=== PATIENT | female | born 1970 | race Caucasian/White ===

== ENCOUNTER → 2018-01-15 09:01 | Outpatient (CLI) | payer MEDICAID, SELFPAY ==
[2018-01-15 09:22] LABS: Basophils % 0.4 % (0.1-2.0); Eosinophils # 0.2 K/mm3 (0.0-0.4); Eosinophils % 3.1 % (0.1-12.0); Hematocrit 36.5 % (37.0-47.0); Lymphocytes % 26.8 K/mm3 (10-50); Mean Corpuscular HGB Conc 32.7 g/dL (31.8-35.4); Mean Corpuscular Hemoglobin 30.7 pg (27.0-31.2); Mean Corpuscular Volume 93.8 fl (81-99); Mean Platelet Volume 6.9 fl (7.4-10.4); Monocytes # 0.4 K/mm3 (0.1-1.0); Monocytes % 5.7 % (1.7-9.3); Neutrophils # 4.8 K/mm3 (1.8-7.8); Neutrophils % 64.1 % (37.0-80.0); Platelet Count 485 K/mm3 (142-424); Red Blood Count 3.89 M/mm3 (4.20-5.40); Red Cell Distribution Width 13.4 % (11.5-17.5); White Blood Count 7.5 K/mm3 (4.8-10.8)
[2018-01-15 16:48] LABS: Alanine Aminotransferase 23 U/L (12-78); Albumin Level 3.6 gm/dL (3.4-5.0); Alkaline Phosphatase 117 U/L (46-116); Anion Gap 9.4 mEq/L (5-15); Aspartate Amino Transferase 14 U/L (15-37); Bilirubin,Total 0.1 mg/dL (0.2-1.0); Blood Urea Nitrogen 11 mg/dL (7-18); Calcium 9.2 mg/dL (8.5-10.1); Carbon Dioxide 28 mmol/L (21.0-32.0); Chloride 103 mmol/L (98-107); Chol/HDL Ratio 4.8 (1-3.5); Cholesterol 158 mg/dL (140-200); Creatinine,Serum 1.15 mg/dL (0.55-1.02); Estimated Glomerular Filt Rate 50 ml/min (>60); GFR (African American) 61 ML/MIN (>60); Globulin 3.5 gm/dl (1.3-3.2); Glucose 114 mg/dL (74-106); HDL Cholesterol 33 mg/dL (29-89); LDL Cholesterol 109 mg/dL (0-130); Potassium 5.4 mmoL/L (3.5-5.1); Sodium 135 mmol/L (136-145); Total Protein,Serum 7.1 gm/dL (6.4-8.2); Triglycerides 78 mg/dL (30-200); VLDL Cholesterol 16 mg/dL (0-40)
== END ==
PROVIDERS: Visit Provider Nurse Practitioner Family
DX: E78.5 Hyperlipidemia, unspecified (principal); R73.9 Hyperglycemia, unspecified; R63.5 Abnormal weight gain; J44.9 Chronic obstructive pulmonary disease, unspecified
CPT/HCPCS: 36415; 80053; 80061; 83036; 84443; 85025

== ENCOUNTER → 2018-08-20 10:06 | Outpatient (CLI) | payer MEDICAID, SELFPAY ==
[2018-08-20 10:19] LABS: Basophils % 0.3 % (0.1-2.0); Eosinophils # 0.2 K/mm3 (0.0-0.4); Hematocrit 37.2 % (37.0-47.0); Lymphocytes # 1.8 K/mm3 (0.7-4.5); Lymphocytes % 17.2 % (10-50); Mean Corpuscular HGB Conc 32.2 g/dL (31.8-35.4); Mean Corpuscular Hemoglobin 29.8 pg (27.0-31.2); Mean Corpuscular Volume 92.7 fl (81-99); Mean Platelet Volume 6.4 fl (7.4-10.4); Monocytes # 0.4 K/mm3 (0.1-1.0); Monocytes % 3.8 % (1.7-9.3); Neutrophils # 7.9 K/mm3 (1.8-7.8); Neutrophils % 76.8 % (37.0-80.0); Platelet Count 461 K/mm3 (142-424); Red Blood Count 4.02 M/mm3 (4.20-5.40); Red Cell Distribution Width 14.6 % (11.5-17.5); White Blood Count 10.3 K/mm3 (4.8-10.8)
[2018-08-20 10:32] LABS: Hemoglobin A1C 6.4 % (0.0-7.0)
[2018-08-20 11:16] LABS: Alanine Aminotransferase 25 U/L (12-78); Albumin Level 3.6 gm/dL (3.4-5.0); Alkaline Phosphatase 145 U/L (46-116); Anion Gap 13.5 mEq/L (5-15); Aspartate Amino Transferase 9 U/L (15-37); Bilirubin,Total 0.3 mg/dL (0.2-1.0); Blood Urea Nitrogen 14 mg/dL (7-18); Calcium 8.8 mg/dL (8.5-10.1); Carbon Dioxide 28 mmol/L (21.0-32.0); Chloride 100 mmol/L (98-107); Cholesterol 160 mg/dL (140-200); Creatinine,Serum 1.13 mg/dL (0.55-1.02); Estimated Glomerular Filt Rate 51 ml/min (>60); GFR (African American) 62 ML/MIN (>60); Globulin 3.6 gm/dl (1.3-3.2); Glucose 105 mg/dL (74-106); HDL Cholesterol 40 mg/dL (29-89); LDL Cholesterol 100 mg/dL (0-130); Potassium 4.5 mmoL/L (3.5-5.1); Sodium 137 mmol/L (136-145); Total Protein,Serum 7.2 gm/dL (6.4-8.2); Triglycerides 98 mg/dL (30-200); VLDL Cholesterol 20 mg/dL (0-40)
== END ==
PROVIDERS: Visit Provider Nurse Practitioner Family
DX: E78.5 Hyperlipidemia, unspecified (principal); R73.9 Hyperglycemia, unspecified; I10 Essential (primary) hypertension; F31.70 Bipolar disorder, currently in remission, most recent episode unspecified
CPT/HCPCS: 36415; 80053; 80061; 83036; 85025

== ENCOUNTER → 2018-08-29 16:16 | Outpatient (CLI) | payer MEDICAID, SELFPAY ==
--- NOTE | 2018-08-29 16:20 | MM_ITS ---
MM Dig screening mamm BI w/CAD CAD Screening COMPARISON: Digital mammograms with CAD 09/17/2014 INDICATION: There is a history of breast cancer in a patient maternal aunt diagnosed after menopause. There has been a previous biopsy right breast for benign disease. TECHNIQUE: Standard CC and MLO images were obtained. R2 CAD reviewed. FINDINGS: The breasts are composed primarily of fat with minimal scattered fibroglandular densities in each breast. There is a stable benign-appearing nodular density near the axillary tail left breast likely an intramammary node. Several small fatty replaced nodes in both axilla. There is no suspicious lesion and there are no suspicious microcalcifications. IMPRESSION: Fatty type breast parenchyma with no suspicious lesion seen BI-RADS Category: 2 Benign Finding(s) RECOMMENDED FOLLOW-UP: 1YR - 1 YEAR FOLLOW-UP (A letter has been sent to the patient regarding results of the study.)
== END ==
PROVIDERS: PCP Nurse Practitioner Family; Visit Provider Nurse Practitioner Family
DX: Z12.31 Encounter for screening mammogram for malignant neoplasm of breast (principal)
CPT/HCPCS: 77067

== ENCOUNTER → 2018-09-20 12:55 | Outpatient (CLI) | payer MEDICAID, SELFPAY | PROVIDERS: PCP Internal Medicine Adolescent Medicine; Visit Provider Nurse Practitioner Family | DX: Z71.3 Dietary counseling and surveillance (principal); R73.9 Hyperglycemia, unspecified | CPT/HCPCS: 97802 ==

== ENCOUNTER → 2019-11-21 13:02 | Outpatient (CLI) | payer OTHER, SELFPAY ==
--- NOTE | 2019-11-21 13:17 | XR_ITS ---
PROCEDURE: XR KNEE LT 3V CLINICAL INDICATION: LT LATERAL KNEE PAIN COMPARISON: No exams were available for comparison FINDINGS: No fracture or dislocation. No lytic or blastic change. There is normal mineralization. There are mild osteoarthritic changes involving all 3 compartments Other findings:Small loose body versus osteophyte along the anterior tibial spine IMPRESSION: Osteoarthritis with small loose body versus osteophyte along the anterior tibial spine otherwise negative Dictated by: Artur Becerra MD 11/21/2019 15:27 Electronically signed by Artur Becerra MD in [place] 11/21/2019 15:27
[2019-11-21 13:18] LABS: Basophils % 0.3 % (0.1-2.0); Eosinophils # 0.2 K/mm3 (0.0-0.4); Eosinophils % 2.5 % (0.1-12.0); Hemoglobin 11.3 g/dL (12.2-16.2); Lymphocytes # 2.4 K/mm3 (0.7-4.5); Lymphocytes % 31.2 % (10-50); Mean Corpuscular HGB Conc 33.1 g/dL (31.8-35.4); Mean Corpuscular Hemoglobin 31.1 pg (27.0-31.2); Mean Corpuscular Volume 94.1 fl (81-99); Mean Platelet Volume 7.5 fl (7.4-10.4); Monocytes # 0.5 K/mm3 (0.1-1.0); Monocytes % 6.9 % (1.7-9.3); Neutrophils # 4.6 K/mm3 (1.8-7.8); Neutrophils % 59.1 % (37.0-80.0); Platelet Count 416 K/mm3 (142-424); Red Blood Count 3.62 M/mm3 (4.20-5.40); Red Cell Distribution Width 13.5 % (11.5-17.5); White Blood Count 7.7 K/mm3 (4.8-10.8)
[2019-11-21 14:27] LABS: Alanine Aminotransferase 19 U/L (12-78); Albumin Level 4.1 g/dl (3.5-5.0); Albumin/Globulin Ratio 1.6 (1.1-1.8); Alkaline Phosphatase 77 U/L (38-126); Anion Gap 11.4 mEq/L (5-15); Aspartate Amino Transferase 19 U/L (14-36); Blood Urea Nitrogen 13 mg/dl (7-17); Calcium 9.4 mg/dl (8.4-10.2); Carbon Dioxide 29 mmol/L (22.0-30.0); Chloride 100 mmol/L (98-107); Estimated Glomerular Filt Rate 53 ml/min (>60); GFR (African American) 64 ML/MIN (>60); Globulin 2.6 g/dL (1.3-3.2); Glucose 85 mg/dl (74-100); Potassium 4.4 mmoL/L (3.5-5.1); Sodium 136 mmol/L (136-145); Total Protein,Serum 6.7 g/dl (6.3-8.2)
[2019-11-21 14:28] LABS: Bilirubin,Total 0.1 mg/dl (0.2-1.3)
[2019-11-21 14:59] LABS: Thyroid Stimulating Hormone 2.51 uIU/mL (0.465-4.68)
[2019-11-21 18:07] LABS: Hemoglobin A1C 5.3 % (4.0-6.0)
[2019-11-22 12:28] LABS: Creatinine, Urine 90.6 mg/dL (Not Estab.); Microalbumin, Urine 6.6 ug/mL (Not Estab.)
== END ==
LOC: LAB 13:02 → RAD 13:15
PROVIDERS: PCP Nurse Practitioner Family; Visit Provider Nurse Practitioner Family
DX: R73.03 Prediabetes (principal); I10 Essential (primary) hypertension; N18.3 Chronic kidney disease, stage 3 (moderate); K21.9 Gastro-esophageal reflux disease without esophagitis; M25.562 Pain in left knee; Z72.0 Tobacco use
CPT/HCPCS: 36415; 73562; 80053; 82043; 82570; 83036; 84443; 85025

== ENCOUNTER → 2019-12-06 08:30 | Outpatient (CLI) | payer OTHER, SELFPAY ==
--- NOTE | 2019-12-06 08:34 | XR_ITS ---
PROCEDURE: XR KNEE LT 4V CLINICAL INDICATION: left knee pain COMPARISON: XR KNEE LT 3V from 11/21/2019 FINDINGS: No fracture or dislocation. No lytic or blastic change. There is normal mineralization. There are [id number] osteoarthritic changes involving all 3 compartments. Calcification is present along the anterior tibial spine and may be due to either an osteophyte or loose body. Other findings:None. IMPRESSION: No change mild to moderate osteoarthritic changes with osteophyte versus loose body at the anterior tibial spine Dictated by: Artur Becerra MD 12/06/2019 09:24 Electronically signed by Artur Becerra MD in [place] 12/06/2019 09:24
== END ==
PROVIDERS: PCP Nurse Practitioner Family; Visit Provider Orthopaedic Surgery
DX: M25.562 Pain in left knee (principal)
CPT/HCPCS: 73564

== ENCOUNTER → 2019-12-16 09:37 | Outpatient (CLI) | payer OTHER, SELFPAY ==
--- NOTE | 2019-12-16 09:49 | MM_ITS ---
PROCEDURE: MM DIG SCREENING MAMM BI W/CAD Digital Breast Tomosynthesis Included CLINICAL INDICATION: SCREENING COMPARISON: [facility] DIG MAMM-SCREEN MEGHANN from 09/17/2014 [facility] MM Dig screening mamm BI w/CAD from 08/29/2018 TECHNIQUE: Standard CC and MLO images and 3D Tomosynthesis was obtained. R2 CAD reviewed. FINDINGS: The breasts are of average density. Multiple benign appearing nodules project over the right pectoral muscle and in the prepectoral region bilaterally most consistent with benign lymph nodes. No discrete masses suspicious clustered microcalcifications or other new findings suspicious for malignancy are apparent. IMPRESSION: BI-RAD Category: 2 Benign Finding(s) FOLLOW-UP: 1YR 1 Year Follow-up (A letter has been sent to the patient regarding results of the study.) Dictated by: Bo Stock 12/16/2019 18:37 Electronically signed by Bo Stock in [place] 12/16/2019 18:37
== END ==
PROVIDERS: PCP Nurse Practitioner Family; Visit Provider Nurse Practitioner Family
DX: Z12.31 Encounter for screening mammogram for malignant neoplasm of breast (principal)
CPT/HCPCS: 77063; 77067

== ENCOUNTER → 2021-05-27 09:36 | Outpatient (CLI) | payer OTHER, SELFPAY ==
[2021-05-27 10:05] LABS: Basophils # 0.1 K/mm3 (0-0.2); Basophils % 0.6 % (0.1-2.0); Eosinophils # 0.8 K/mm3 (0.0-0.4); Eosinophils % 9.8 % (0.1-12.0); Hematocrit 34.8 % (37.0-47.0); Hemoglobin 11.1 g/dL (12.2-16.2); Lymphocytes # 1.7 K/mm3 (0.7-4.5); Lymphocytes % 19.9 % (10-50); Mean Corpuscular HGB Conc 31.9 g/dL (31.8-35.4); Mean Corpuscular Hemoglobin 32.3 pg (27.0-31.2); Mean Corpuscular Volume 101.3 fl (81-99); Mean Platelet Volume 7.7 fl (7.4-10.4); Monocytes # 0.5 K/mm3 (0.1-1.0); Monocytes % 6.1 % (1.7-9.3); Neutrophils # 5.4 K/mm3 (1.8-7.8); Neutrophils % 63.6 % (37.0-80.0); Platelet Count 421 K/mm3 (142-424); Red Blood Count 3.44 M/mm3 (4.20-5.40); Red Cell Distribution Width 13.9 % (11.5-17.5); White Blood Count 8.5 K/mm3 (4.8-10.8)
[2021-05-27 10:56] LABS: Chloride 105 mmol/L (98-107); Potassium 4.9 mmoL/L (3.5-5.1); Sodium 140 mmol/L (136-145)
[2021-05-27 10:59] LABS: Alanine Aminotransferase 10 U/L (12-78); Albumin Level 3.6 g/dl (3.5-5.0); Albumin/Globulin Ratio 1.2 (1.1-1.8); Alkaline Phosphatase 70 U/L (38-126); Anion Gap 13.9 mEq/L (5-15); Aspartate Amino Transferase 17 U/L (14-36); Blood Urea Nitrogen 25 mg/dl (7-17); Carbon Dioxide 26 mmol/L (22.0-30.0); Cholesterol 197 mg/dl (140-200); Estimated Glomerular Filt Rate 32 ml/min (>60); GFR (African American) 38 ML/MIN (>60); Globulin 2.9 g/dL (1.3-3.2); Total Protein,Serum 6.5 g/dl (6.3-8.2); Triglycerides 101 mg/dl (30-150); VLDL Cholesterol 20 mg/dL (0-40)
[2021-05-27 11:00] LABS: Calcium 9.3 mg/dl (8.4-10.2); Chol/HDL Ratio 6.8 (1-3.5); Glucose 99 mg/dl (74-100); HDL Cholesterol 29 mg/dl (40-60)
[2021-05-27 11:02] LABS: Bilirubin,Total 0.1 mg/dl (0.2-1.3)
[2021-05-27 11:11] LABS: Direct LDL Cholesterol 132.18 mg/dL (100-129)
[2021-05-27 11:30] LABS: Thyroid Stimulating Hormone 1.94 uIU/mL (0.465-4.68)
[2021-05-27 12:50] LABS: Hemoglobin A1C 5.6 % (4.0-6.0)
== END ==
PROVIDERS: Visit Provider Nurse Practitioner Family
DX: I10 Essential (primary) hypertension (principal); R73.03 Prediabetes; R63.4 Abnormal weight loss
CPT/HCPCS: 36415; 80053; 80061; 83036; 84443; 85025

== ENCOUNTER 2021-06-03 18:45 | Emergency (ER) | payer OTHER, SELFPAY ==
[2021-06-03 18:48] VITALS: BP 149/91; PULSE 87; RESP 18; TEMP 36.8; O2SAT 99; BMI 31.3
--- NOTE | 2021-06-03 19:04 | XR_ITS ---
PROCEDURE INFORMATION: Exam: XR Right Foot Exam date and time: 06/03/21 07:04 PM Age: 50 years old Clinical indication: Pain; Toes; Right; Additional info: Great toe trauma TECHNIQUE: Imaging protocol: XR Right foot. Views: 3 or more views. COMPARISON: No relevant prior studies available. FINDINGS: Bones/joints: Small avulsion fracture of the tuft of the distal phalanx of the great toe. Soft tissues: Normal. IMPRESSION: Small avulsion fracture of the tuft of the distal phalanx of the great toe.
--- NOTE | 2021-06-03 20:00 | HMH.EDEXTP ---
ED Disposition Clinical Impression: Nailbed avulsion Disposition: Home, Self-Care Condition on Discharge: Good Instructions: DI for Nail Avulsion Injury Referrals: Eleonora Gandara APRN [Primary Care Provider] - Tami Martin DPM [Staff Physician] - - Critical Care Critical Care Time: No Attestation: On 06/03/21, the high probability of a clinically significant, sudden or life threatening deterioration of the following system(s) required my full and direct attention, intervention and personal management. The time I documented below is in addition to time spent performing reported procedures but includes the following listed in this critical care notation. Medical Decision Making - Medical Records Medical records reviewed: Yes: I reviewed the patient's medical records. - Guillermo Inquiry Pt receiving controlled substance: No Vital Signs: 06/03/21 18:48 Temperature 98.3 F Temperature Source Oral Pulse Rate [Right Radial] 87 Respiratory Rate 18 Blood Pressure [Right Arm] 149/91 H Blood Pressure Mean [Right Arm] 110 Blood Pressure Source [Right Arm] Automatic Cuff Blood Pressure Position [Right Arm] Sitting 02 Sat by Pulse Oximetry 99 Oxygen Delivery Method Room Air Orders (Tests/Meds): ED MEDICATIONS Discontinued Medications Generic Name Dose Route Start Last Admin Trade Name Freq PRN Reason Stop Dose Admin Acetaminophen 1,000 mg 06/03/21 19:04 06/03/21 19:46 Acetaminophen 500mg Tab PO 06/03/21 19:05 1,000 mg ONCE ONE Administration ORDERS Category Date Time Status XR foot RT min 3V Stat Exams 06/03/21 19:04 Taken - Radiology Data #1 Image(s): Foot/Toes Image Reviewed: Yes I reviewed the patient's radiology results, Yes I reviewed the patient's radiology image Preliminary Findings: Normal/NAD, No Fracture Seen - Reevaluation(s) Time: 20:04 Reevaluation #1: On reevaluation, patient tolerated procedure well. We did apply sterile dressing. She will need to follow-up with podiatry in 48 hours. Given strict return precautions. Verbalized understanding. Medical Decision Narrative: 50-year-old female presenting with trauma to her right great toe. She does have evidence of partial nail removal. She will require full nail removal. X-ray obtained. Tetanus updated Extremity Problem HPI - General Chief complaint: Extremity Injury, Lower Stated complaint: injured right big toe Time Seen by Provider: 06/03/21 19:00 Mode of Arrival: Ambulatory Limitations: No Limitations Description of Symptoms (Recalled from ER Triage Doc. by RN): pt struck right great toe on bottom of door frame displacing her toe nail. - History of Present Illness HPI Narrative: This is a 50-year-old female presented to the emergency department after she hit her toe on the bottom of the door when she was opening it. She hit her toenail pretty hard. She had significant bleeding afterwards. She is complaining of pain in her right great toe. Patient is not up-to-date on tetanus immunization. She denies any other injuries. She not having chest pain or shortness of breath and abdominal pain or vomiting. No headache or change in vision. - Related Data Home Medications Medication Instructions Recorded Confirmed atorvastatin 40 mg tablet 40 mg PO DAILY 12/06/19 06/23/20 cetirizine 10 mg tablet 10 mg PO DAILY 12/06/19 06/23/20 diclofenac sodium 1 % topical gel 2 g TOPICAL QID 12/06/19 06/23/20 fluticasone propionate 50 1 spray INTRANASAL DAILY 12/06/19 06/23/20 mcg/actuation nasal spray,suspension hydrochlorothiazide 12.5 mg capsule 12.5 mg PO DAILY 12/06/19 06/23/20 lisinopril 20 mg tablet 20 mg PO DAILY 12/06/19 06/23/20 metformin 500 mg tablet 500 mg PO DAILY 12/06/19 06/23/20 pantoprazole 40 mg tablet,delayed 40 mg PO DAILY 12/06/19 06/23/20 release Previous Rx's Medication Instructions Recorded celecoxib 100 mg capsule 100 mg PO BID PRN #60 cap 05/06/20 bupropi
[2021-06-03 20:22] VITALS: BP 136/85; PULSE 79; RESP 16; TEMP 36.7; O2SAT 98
== END 2021-06-03 20:27 | disposition home or self-care (01) ==
PROVIDERS: Emergency Provider Emergency Medicine; PCP Nurse Practitioner Family
DX: S91.201A Unspecified open wound of right great toe with damage to nail, initial encounter (principal); Z23 Encounter for immunization; Z79.84 Long term (current) use of oral hypoglycemic drugs; Z79.899 Other long term (current) drug therapy; Z88.1 Allergy status to other antibiotic agents; Z88.6 Allergy status to analgesic agent; J45.909 Unspecified asthma, uncomplicated; E11.9 Type 2 diabetes mellitus without complications; K21.9 Gastro-esophageal reflux disease without esophagitis; E78.5 Hyperlipidemia, unspecified; I10 Essential (primary) hypertension; D64.9 Anemia, unspecified; F41.9 Anxiety disorder, unspecified; M19.90 Unspecified osteoarthritis, unspecified site
CPT/HCPCS: 11730; 73630; 90471; 90715; 99282

== ENCOUNTER → 2021-09-02 11:51 | Outpatient (CLI) | payer OTHER, SELFPAY ==
[2021-09-02 13:17] LABS: Chloride 102 mmol/L (98-107)
[2021-09-02 13:18] LABS: Potassium 4.5 mmoL/L (3.5-5.1); Sodium 136 mmol/L (136-145)
[2021-09-02 13:20] LABS: Blood Urea Nitrogen 24 mg/dl (7-17); Estimated Glomerular Filt Rate 52 ml/min (>60); GFR (African American) 63 ML/MIN (>60)
[2021-09-02 13:21] LABS: Anion Gap 13.5 mEq/L (5-15); Carbon Dioxide 25 mmol/L (22.0-30.0); Glucose 86 mg/dl (74-100)
== END ==
PROVIDERS: Visit Provider Nurse Practitioner Family
DX: I10 Essential (primary) hypertension (principal); R73.03 Prediabetes
CPT/HCPCS: 36415; 80048

== ENCOUNTER 2022-02-22 18:29 | Emergency (ER) | payer OTHER, SELFPAY ==
[2022-02-22 19:30] VITALS: BP 144/80; PULSE 74; RESP 19; TEMP 36.9; O2SAT 98; BMI 34.4
--- NOTE | 2022-02-22 19:52 | HMH.EDUTC ---
[facility] [place] Clinical Impression: Skin abscess Qualifiers: Site of cutaneous abscess: head Qualified Code(s): L02.811 - Cutaneous abscess of head [any part, except face] Disposition: Home, Self-Care Condition on Discharge: Good Instructions: DI for Skin Abscess Additional Instructions: *Continue antibiotic(s) immediately and be sure to take as ordered for the FULL length of time although you may be feeling better or start to see improvement in the next 24-48 hours *Monitor closely. Outlined redness so that you can monitor easier. Follow up immediately for new or worsening symptoms including but not limited to redness, swelling, streaking from site fever or chills. *Warm compress with warm water and epson salt 15 minutes 3-4 times day *Never squeeze or pop these on your own. Seek immediate medical attention next time this occurs *Monitor Temp. Tylenol every 4 hours as needed and ibuprofen every 6 hours as needed (as long as your primary care doctor has told you that it is ok to take both. For fever, aches, pain. ER if no less that 101 despite Tylenol and ibuprofen Follow up with your family doctor/primary care physician in the next 48-72 hours if no improvement A culture was obtained from the area on the back of your Head Culture should be back in the next 48 hours Make sure to follow up to see if you are on the correct antibiotic for the infection this Over the counter Ibuprofen or Tylenol for the pain Prescriptions: Ibuprofen [Ibuprofen 600mg Tablet] 600 mg PO Q8HP PRN #12 tab PRN Reason: Moderate Pain Transmission Status: Pending to [id number] Referrals: Eleonora Gandara APRN [Primary Care Provider] - As needed Time of Disposition: 20:11 Medical Decision Making - Guillermo Inquiry Pt receiving controlled substance: No Guillermo was queried for this patient: No Vital Signs: 02/22/22 19:30 Temperature 98.5 F Temperature Source Oral Pulse Rate [Right Brachial] 74 Respiratory Rate 19 Blood Pressure [Right Arm] 144/80 H Blood Pressure Mean [Right Arm] 101 Blood Pressure Source [Right Arm] Automatic Cuff Blood Pressure Position [Right Arm] Sitting 02 Sat by Pulse Oximetry 98 Oxygen Delivery Method Room Air Orders (Tests/Meds): ORDERS Category Date Time Status Wound Culture and Gram Stain Stat Micro 02/22/22 19:46 Ordered Medical Decision Narrative: Patient denies Kidney issues and states that she can take Ibuprofen medication discussed with pharmacy [facility] [place] - General Stated complaint: Boil at Hair line back of neck Time Seen by Provider: 02/22/22 19:52 Mode of Arrival: Ambulatory Source of Information: Patient Limitations: No Limitations Description of Symptoms (Recalled from Triage Doc. by RN): PATIENT STATES SHE HAS A BOIL THAT SHE WANTS LANCED. SHE WAS STARTED ON BACTRIM YESTERDAY FOR THE BOIL HEENT Symptoms (Recalled from RN notes): No Resp Symptoms (Recalled from RN notes): No Skin Symptoms (Recalled from RN notes): Yes MS Symptoms (Recalled from RN notes): No Functional Status (Recalled from RN notes): WNL - History of Present Illness Provider Complaint: Patient states that she was seen by her PCP yesterday for a boil on the back of her head around her hairline State that she poked it something and started her on bactrim and some topical antibiotic States that she has take 3 doses of her antibiotic and her poked it again with needle earlier but nothing came out so she came in to see if she could get something else - Related Data Home Medications Medication Instructions Recorded Confirmed atorvastatin 40 mg tablet 40 mg PO DAILY 12/06/19 12/28/21 cetirizine 10 mg tablet 10 mg PO DAILY 12/06/19 12/28/21 diclofenac sodium 1 % topical gel 2 g TOPICAL QID 12/06/19 12/28/21 fluticasone propionate 50 1 spray INTRANASAL DAILY 12/06/19 12/28/21 mcg/actuation nasal spray,suspension hydrochlorothiazide 12.5 mg capsule 12.5 mg PO DAILY 12/06/19 12/28/21 lisinopril
[2022-02-22 20:10] VITALS: BP 144/80; PULSE 74; RESP 19; TEMP 36.9; O2SAT 98
== END 2022-02-22 20:15 | disposition home or self-care (01) ==
PROVIDERS: Emergency Provider Nurse Practitioner; PCP Nurse Practitioner Family
DX: L02.811 Cutaneous abscess of head [any part, except face] (principal); A49.01 Methicillin susceptible Staphylococcus aureus infection, unspecified site; Z16.39 Resistance to other specified antimicrobial drug; Z16.11 Resistance to penicillins
CPT/HCPCS: 87070; 87077; 87186; 87205; 99212; G0463

== ENCOUNTER 2022-02-25 12:22 | Observation (INO) | payer OTHER, SELFPAY ==
[2022-02-25] VITALS (19 sets, daily range): BP systolic 121–154; BP diastolic 64–99; PULSE 64–84; RESP 15–17; TEMP 36.4–36.7; O2SAT 95–100; BMI 75.8
--- NOTE | 2022-02-25 12:55 | PC.NURSE ---
Pt arrived to the floor at this time
--- NOTE | 2022-02-25 13:12 | HMH.GSCON ---
*Admission Date: 02/25/22 *Reason for consult:: Posterior neck abscess/carbuncle *History of present illness: This is a 51-year-old female seen in consultation from Dr. Francis for evaluation regarding a posterior neck abscess/carbuncle that has failed outpatient antibiotic therapy. No fevers. Review of Systems - Constitutional Denies chills - ENT Denies difficulty swallowing - *Cardiovascular Denies chest pain - *Respiratory Denies cough [facility] History Medical History: Reports:: Anxiety, Asthma, Diabetes Mellitus Type 2, Gastroesophageal Reflux Disease(GERD), Hyperlipidemia, Hypertension *Have you ever received a pneumonia vaccine?: Yes *Have you received a flu vaccine this season?: No Other Medical History: Reports: Anemia, Arthritis, Sinus Problems Laterality Cases: Right: Other Other Surgeries: Yes: Sinus Surgery, Tubal Ligation - *Social History Smoking Status: Current every day smoker Tobacco Type: cigarettes # Packs/Day (cigarettes): 1 Alcohol Intake: never Alcohol Intake Frequency:: other Substance Use Type: crack/cocaine, painkillers *Occupational Status:: other *Travel in the last 8 weeks: None - Psychiatric History Pschychiatric History:: Reports:: Anxiety Family Hx:: Cancer, Hypertension, Hyperlipidemia, Heart Attack Meds Home Medications Medication Instructions Recorded Confirmed Type atorvastatin 40 mg tablet 40 mg PO DAILY 12/06/19 12/28/21 History cetirizine 10 mg tablet 10 mg PO DAILY 12/06/19 12/28/21 History diclofenac sodium 1 % topical gel 2 g TOPICAL QID 12/06/19 12/28/21 History fluticasone propionate 50 1 spray INTRANASAL DAILY 12/06/19 12/28/21 History mcg/actuation nasal spray,suspension hydrochlorothiazide 12.5 mg capsule 12.5 mg PO DAILY 12/06/19 12/28/21 History lisinopril 20 mg tablet 20 mg PO DAILY 12/06/19 12/28/21 History metformin 500 mg tablet 500 mg PO DAILY 12/06/19 12/28/21 History pantoprazole 40 mg tablet,delayed 40 mg PO DAILY 12/06/19 12/28/21 History release celecoxib 100 mg capsule 100 mg PO BID PRN #60 cap 05/06/20 12/28/21 Rx mupirocin 2 % topical ointment 1 applic TOPICAL TID #15 g 06/04/21 12/28/21 Rx albuterol sulfate 90 mcg/actuation 2 puff INHALATION g 06/22/21 12/28/21 History aerosol inhaler Ibuprofen [Ibuprofen 600mg 600 mg PO Q8HP PRN #12 tab 02/22/22 Rx Tablet] bupropion HCl 150 mg 24 hr tablet, 150 mg PO DAILY #90 tab 02/23/22 02/23/22 Rx extended release bupropion HCl 300 mg 24 hr tablet, 300 mg PO DAILY #90 tab 02/23/22 02/23/22 Rx extended release fluoxetine 20 mg capsule 20 mg PO DAILY #90 cap 02/23/22 02/23/22 Rx fluoxetine 40 mg capsule 40 mg PO DAILY #90 cap 02/23/22 02/23/22 Rx lurasidone 120 mg tablet 120 mg PO HS #90 tab 02/23/22 02/23/22 Rx Allergies Allergy/AdvReac Type Severity Reaction Status Date / Time amoxicillin [From AUGMENTIN] Allergy Unknown Verified 12/28/21 13:17 clavulanic acid Allergy Unknown Verified 12/28/21 13:17 [From AUGMENTIN] oxycodone [OXYCODONE] Allergy Unknown I-RASH Verified 12/28/21 13:17 tramadol [TRAMADOL] Allergy Unknown I-RASH Verified 12/28/21 13:17 Exam - Constitutional no acute distress - *Routine Neck Exam Comments: Posterior neck carbuncle with focal induration, marginal necrosis, and cellulitic blush - *Routine Respiratory Exam Absent: respiratory distress - *Routine Cardiovascular Exam Absent: tachycardia Assessment and Plan (1) Carbuncle, neck Status: Acute Category: Medical Code(s): L02.13 - Carbuncle of neck Continue antibiotic therapy as per primary service Incision and drainage/debridement today I have discussed the risks and benefits including, but not limited to: Bleeding Infection Damage to surrounding tissue Inherent risks of sedation The patient agrees to proceed.
[2022-02-25 13:45] LABS: Coronavirus 19, PCR Not Detected (NotDetected)
[2022-02-25 13:46] LABS: Influenza A, PCR Not Detected (NotDetected); Influenza B, PCR Not Detected (NotDetected)
--- NOTE | 2022-02-25 14:03 | HMH.HP ---
*Admission Date: 02/25/22 *Chief complaint: neck abscess and pain *History of present illness: Mrs. Morales is a 51yF with CKD and prediabetes who presented to the outpatient office with abscess of back of neck. Started one week ago. Pain and swelling has worsened since presentation. Patient was given Bactrim by our office five days ago and has been taking twice daily since then. Abscess has continued to worsen since then. Patient went to Urgent Care three days ago and reports that draining fluid from abscess was collected and sent for culture. She has not received results from those cultures. She was also given high dose ibuprofen, which she has been taking for pain. She reports significant pain from abscess. She has been unable to sleep due to pain. Reports no fevers, chills since development of abscess. Has no other skin lesions currently. Reports two abcesses (arm and chest) in past, but is unsure what antibiotics she was given at that time. Reports no known trauma or insect bites at area of abscess prior to abscess develpment. Directly admitted to the hospital for further management. Given failure of oral antibiotics, will initiate IV antibiotics. Surgery consult placed. [facility] History I have reviewed the patient's past medical history: Yes Medical History: Reports:: Anxiety, Asthma, Gastroesophageal Reflux Disease(GERD), Hyperlipidemia, Hypertension Denies:: Cancer, Diabetes Mellitus Type 1, Diabetes Mellitus Type 2, MRSA, Seizures *Have you ever received a pneumonia vaccine?: Yes *Have you received a flu vaccine this season?: Yes Other Medical History: Reports: Anemia, Arthritis, Sinus Problems. Denies: Blood Transfusion Reaction Laterality Cases: Right: Other Other Surgeries: Yes: Sinus Surgery, Tubal Ligation Amputation: No Fractures: No - *Social History Last grade of school completed: 9th or 10th Smoking Status: Current every day smoker Tobacco Type: cigarettes # Packs/Day (cigarettes): 3 Alcohol Intake: never Alcohol Intake Frequency:: other Substance Use Type: crack/cocaine, painkillers *Occupational Status:: retired Housing: apartment Household Members: spouse *Travel in the last 8 weeks: None - Psychiatric History Pschychiatric History:: Reports:: Anxiety Family Hx:: No significant family history Review of Systems - Review of Systems Review of systems:: pertinent systems reviewed and negative unless documented below (14 point review of systems performed, pertinent positives and negatives as per HPI) Meds Home Medications Medication Instructions Recorded Confirmed Type atorvastatin 40 mg tablet 40 mg PO HS 12/06/19 02/25/22 History cetirizine 10 mg tablet 10 mg PO DAILY 12/06/19 02/25/22 History diclofenac sodium 1 % topical gel 2 g TOPICAL QID 12/06/19 02/25/22 History fluticasone propionate 50 1 spray INTRANASAL DAILY 12/06/19 02/25/22 History mcg/actuation nasal spray,suspension hydrochlorothiazide 12.5 mg capsule 12.5 mg PO DAILY 12/06/19 02/25/22 History lisinopril 20 mg tablet 20 mg PO DAILY 12/06/19 02/25/22 History pantoprazole 40 mg tablet,delayed 40 mg PO HS 12/06/19 02/25/22 History release mupirocin 2 % topical ointment 1 applic TOPICAL TID #15 g 06/04/21 02/25/22 Rx albuterol sulfate 90 mcg/actuation 2 puff INHALATION Q6HP PRN g 06/22/21 02/25/22 History aerosol inhaler Ibuprofen [Ibuprofen 600mg 600 mg PO Q8HP PRN #12 tab 02/22/22 02/25/22 Rx Tablet] Celecoxib 100 mg PO BID 02/25/22 02/25/22 History Fluoxetine HCl 40 mg PO HS 02/25/22 02/25/22 History Fluoxetine HCl [Prozac] 20 mg PO HS 02/25/22 02/25/22 History Fluticasone/Salmeterol [Advair 1 inh IH BID 02/25/22 02/25/22 History 100/50mcg diskus] Lurasidone HCl [Latuda] 120 mg PO HS 02/25/22 02/25/22 History buPROPion HCL [Wellbutrin XL] 150 mg PO DAILY 02/25/22 02/25/22 History buPROPion HCL [Wellbutrin XL] 300 mg PO DAILY 02/25/22 02/25/22 History Allergies Allergy/AdvReac Type Severity Reaction Status Date / Noah
--- NOTE | 2022-02-25 14:17 | P.OP_ITS ---
Date of procedure: 02/25/22 Pre-op Diagnosis:: Posterior neck abscess/carbuncle Post-op Diagnosis:: Same Procedure performed:: Incision and drainage/debridement of posterior neck abscess/carbuncle Surgeon:: Eliel Greer MD GAUGE OPERATOR:: Mac Danielle Anesthesia: LMA Estimated blood loss (mL): 10 Operative findings:: Induration with mild central fluctuance Purulent cavity with surrounding focal necrosis Operative note:: After informed consent was obtained the patient was taken to the operating room and placed in the supine position. General anesthesia with laryngeal mask airway was achieved. Her posterior neck was prepped and draped in a sterile fashion after transfer to a right lateral decubitus position. An elliptical incision was made around the central portion of the lesion. A purulent cavity was encountered. Fluid was obtained for gram stain/culture. The dissection was taken with electrocautery through to the deeper subcutaneous tissue. Focal necrosis was debrided. The wound was packed with moistened Kerlix and the entire region was infiltrated with 1% lidocaine. Dressings were applied and the patient was transferred recovery in stable condition. Condition: stable Disposition: PACU Specimens:: Fluid for gram stain/culture Complications:: No immediate
--- NOTE | 2022-02-25 14:27 | HMH.ANESCL ---
[facility] Anesthesia Checklist - Patient Identification Patient Identification: Arm Band - Structural Data Admitted From: Inpatient Planned Operative Procedure/s: I&D Posterior Neck Abscess Consent for Planned Operative Procedure(s) Verified: Yes Verified Documents: Surgical Consent, History and Physical - NPO Status Verified Time NPO: 00:00 - Additional verifications Anesthesia Reactions: No Hx Blood Transfusions: No Blood Transfusion Reaction: No - Airway Assessment C-Spine Mobility Assessed: Yes (mp2) TMJ Mobility Assessed: Yes Dentition: Edentulous - Neurological Assessment Level of Consciousness: Awake, Alert - Anesthesia Plan Anesthesia Risk discussed: Yes Anesthesia Plan: Verified ASA Class: II Anesthesia Type: General [facility] History I have reviewed the patient's past medical history: Yes Medical History: Reports:: Anxiety, Asthma, Gastroesophageal Reflux Disease(GERD), Hyperlipidemia, Hypertension Denies:: Cancer, Diabetes Mellitus Type 1, Diabetes Mellitus Type 2, MRSA, Seizures *Have you ever received a pneumonia vaccine?: Yes *Have you received a flu vaccine this season?: Yes Other Medical History: Reports: Anemia, Arthritis, Sinus Problems. Denies: Blood Transfusion Reaction Anesthesia experience/problems:: nac Laterality Cases: Right: Other Other Surgeries: Yes: Sinus Surgery, Tubal Ligation Amputation: No Fractures: No - *Social History Last grade of school completed: 9th or 10th Smoking Status: Current every day smoker Tobacco Type: cigarettes # Packs/Day (cigarettes): 3 Alcohol Intake: never Alcohol Intake Frequency:: other Substance Use Type: crack/cocaine, painkillers *Occupational Status:: retired Housing: apartment Household Members: spouse *Travel in the last 8 weeks: None - Psychiatric History Pschychiatric History:: Reports:: Anxiety Family Hx:: No significant family history
--- NOTE | 2022-02-25 14:28 | HMH.ANESI ---
[facility] Anesthesia Record Part I Intake, IV Amount: 500 Estimated blood loss (mL): 5 Urine output (mL): 0 Blood Pressure: 127/72 SaO2: 99 Pulse Rate: 70 Respiratory Rate: 16 Temperature: 97.5 F Patient is:: Drowsy, Stable Stable to PACU at:: 14:20
--- NOTE | 2022-02-25 14:33 | P.CONPHA_ITS ---
[facility] Pharmacy VTE Monitoring - Patient Demographics Admission date: 02/25/22 Report Date: 02/25/22 Time: 14:33 Allergies/Adverse Reactions: Patient Allergies amoxicillin [From AUGMENTIN] Allergy (Unknown, Verified 02/25/22 13:50) clavulanic acid [From AUGMENTIN] Allergy (Unknown, Verified 02/25/22 13:50) oxycodone [OXYCODONE] Allergy (Unknown, Verified 02/25/22 13:50) I-RASH tramadol [TRAMADOL] Allergy (Unknown, Verified 02/25/22 13:50) I-RASH Height: 1.68 m Weight: 213 kg Patient Problems: Current Active Problems Carbuncle, neck (Acute) - VTE Risk Clinical Trial Participant: No - Prophylaxis VTE Prophylaxis Ordered?: Yes Types of VTE Prophylaxis: TEDS Knee High
--- NOTE | 2022-02-25 14:41 | HMH.PHAINT ---
home medication list verified using list from outpatient pharmacy and Cathleen Steele' office
[2022-02-25 17:28] LABS: Chloride 106 mmol/L (98-107); Sodium 136 mmol/L (136-145)
[2022-02-25 17:29] LABS: Potassium 4.5 mmoL/L (3.5-5.1)
[2022-02-25 17:31] LABS: Alanine Aminotransferase 14 U/L (12-78); Albumin Level 3.9 g/dl (3.5-5.0); Albumin/Globulin Ratio 1.3 (1.1-1.8); Alkaline Phosphatase 86 U/L (38-126); Anion Gap 13.5 mEq/L (5-15); Aspartate Amino Transferase 18 U/L (14-36); Bilirubin,Total 0.2 mg/dl (0.2-1.3); Blood Urea Nitrogen 19 mg/dl (7-17); Calcium 8.9 mg/dl (8.4-10.2); Carbon Dioxide 21 mmol/L (22.0-30.0); Creatinine Clearance Estimated 41 mL/min (50-200); Estimated Glomerular Filt Rate 36 ml/min (>60); GFR (African American) 44 ML/MIN (>60); Glucose 200 mg/dl (74-100); Total Protein,Serum 6.9 g/dl (6.3-8.2)
[2022-02-25 17:32] LABS: Lactic Acid 1.2 mmol/L (0.7-2.1)
[2022-02-25 17:36] LABS: Basophils # 0.1 K/mm3 (0-0.2); Basophils % 0.7 % (0.1-2.0); Eosinophils # 0.2 K/mm3 (0.0-0.4); Eosinophils % 1.9 % (0.1-12.0); Hematocrit 33.5 % (37.0-47.0); Lymphocytes # 0.6 K/mm3 (0.7-4.5); Lymphocytes % 6.7 % (10-50); Mean Corpuscular Hemoglobin 31.8 pg (27.0-31.2); Mean Corpuscular Volume 96.4 fl (81-99); Mean Platelet Volume 7.3 fl (7.4-10.4); Monocytes # 0.2 K/mm3 (0.1-1.0); Neutrophils # 7.7 K/mm3 (1.8-7.8); Neutrophils % 88.7 % (37.0-80.0); Platelet Count 366 K/mm3 (142-424); Red Blood Count 3.48 M/mm3 (4.20-5.40); Red Cell Distribution Width 14.8 % (11.5-17.5); White Blood Count 8.7 K/mm3 (4.8-10.8)
[2022-02-25 17:42] LABS: MANUAL DIFFERENTIAL MANUAL DIFFERENTIAL (MANUAL DIFF)
[2022-02-25 18:16] LABS: Lymphocytes % 20 % (10-50); Monocytes % 8 % (2-9); Neutrophils % 72 % (42-76); Total Cells Counted 100
[2022-02-25 18:17] LABS: Hypochromasia 1+; Ovalocytes 1+; Platelet Estimate Normal
--- NOTE | 2022-02-25 19:14 | PC.NURSE ---
Nicotine patch ordered. Dr. Francis stated he would change pain medications per pt report of still minor pain. VS stable and patient on room air.
[2022-02-25 22:29] LABS: POC Glucose,Bedside 141 (70-110)
[2022-02-26] VITALS: BP 133/75; PULSE 73; RESP 17; TEMP 37.1; O2SAT 96
[2022-02-26 04:00] VITALS: BP 131/94; PULSE 69; RESP 17; TEMP 36.9; O2SAT 100
[2022-02-26 06:24] VITALS: O2SAT 99
[2022-02-26 06:36] LABS: POC Glucose,Bedside 110 (70-110)
--- NOTE | 2022-02-26 07:04 | PC.NURSE ---
No acute changes. Pt has c/o neck pain 3x t/o shift. PRN pain meds administered per NOV. Pt states favorable results. Pt was helped to shower and dsg was reapplied. CDI. Call light within reach.
[2022-02-26 07:42] LABS: Chloride 105 mmol/L (98-107); Potassium 4.6 mmoL/L (3.5-5.1); Sodium 135 mmol/L (136-145)
[2022-02-26 07:45] LABS: Alanine Aminotransferase 12 U/L (12-78); Albumin Level 3.9 g/dl (3.5-5.0); Albumin/Globulin Ratio 1.2 (1.1-1.8); Alkaline Phosphatase 93 U/L (38-126); Anion Gap 12.6 mEq/L (5-15); Aspartate Amino Transferase 18 U/L (14-36); Bilirubin,Total 0.3 mg/dl (0.2-1.3); Blood Urea Nitrogen 17 mg/dl (7-17); Calcium 9.6 mg/dl (8.4-10.2); Carbon Dioxide 22 mmol/L (22.0-30.0); Creatinine Clearance Estimated 51 mL/min (50-200); Estimated Glomerular Filt Rate 47 ml/min (>60); GFR (African American) 57 ML/MIN (>60); Globulin 3.2 g/dL (1.3-3.2); Glucose 123 mg/dl (74-100); Total Protein,Serum 7.1 g/dl (6.3-8.2)
[2022-02-26 07:46] LABS: Magnesium 1.4 mg/dl (1.6-2.3)
--- NOTE | 2022-02-26 07:47 | HMH.GSPN ---
Subjective Narrative: Ms. Morales is a 51-year-old female status post incision and drainage of infected carbuncle left posterior neck. Feeling well. Packing remains in place. Progress Note: A&P (1) Carbuncle, neck Status: Acute (2) Bipolar 1 disorder Status: Chronic (3) Diabetes mellitus Status: Chronic (4) Chronic pain disorder Status: Chronic (5) Essential hypertension Status: Chronic (6) Chronic kidney disease Status: Chronic (7) Tobacco use disorder Status: Chronic (8) Obesity Status: Chronic Assessment and Plan for All Diagnoses:: 1. Neck carbuncle. Status post I&D. Continue local wound care. Shower this morning. Lightly packed. Continue local wound care with subsequent follow-up with Dr. Greer as outpatient in the next 1 to 2 weeks. Exam Vital signs and Labs for Last 24 Hours: Temp Pulse Resp BP Pulse Ox 98.4 F 69 17 131/94 H 99 02/26/22 04:00 02/26/22 04:00 02/26/22 04:00 02/26/22 04:00 02/26/22 06:24 Laboratory Results - last 24 hr 02/25/22 13:38: SARS-CoV-2 (PCR) Not detected, Influenza A Untype (PCR) Not detected, Influenza Type B (PCR) Not detected 02/25/22 17:12: WBC 8.7, RBC 3.48 L, Hgb 11.0 L, Hct 33.5 L, MCV 96.4, MCH 31.8 H, MCHC 33.0, RDW 14.8, Plt Count 366, MPV 7.3 L, Neut % (Auto) 88.7 H, Lymph % (Auto) 6.7 L, [place] % (Auto) 2.0, Eos % (Auto) 1.9, Baso % (Auto) 0.7, Neut # (Auto) 7.7, Lymph # (Auto) 0.6 L, [place] # (Auto) 0.2, Eos # (Auto) 0.2, Baso # (Auto) 0.1, Total Counted 100, Neutrophils % (Manual) 72, Lymphocytes % (Manual) 20, Monocytes % (Manual) 8, Platelet Estimate Normal, Hypochromasia 1+, Ovalocytes 1+ 02/25/22 17:12: Sodium 136, Potassium 4.5, Chloride 106, Carbon Dioxide 21 L, Anion Gap 13.5, BUN 19 H, Creatinine 1.50 H, Estimated Creat Clear 41, Estimated GFR 36 L, Est GFR ( Amer) 44 L, Glucose 200 H, Calcium 8.9, Total Bilirubin 0.2, AST 18, ALT 14, Alkaline Phosphatase 86, Total Protein 6.9, Albumin 3.9, Globulin 3.0, Albumin/Globulin Ratio 1.3 02/25/22 17:12: Lactate 1.2 02/25/22 22:04: POC Glucose 141 H 02/26/22 06:28: POC Glucose 110 02/26/22 07:08: Sodium 135 L, Potassium 4.6, Chloride 105 I & O for Last 24 hours: Intake & Output 02/23/22 02/24/22 02/25/22 02/26/22 11:59 11:59 11:59 11:59 Intake Total 1100 / 1100 Output Total 300 / 300 Balance 800 / 800 Weight 213 kg Microbiology Reports for the Last 24 Hours: Microbiology 02/25/22 14:06 Neck - Abscess Gram Stain - Final - *Routine HEENT Exam Comments: Induration at incision and drainage site noted. Tightly packed.
[2022-02-26 08:00] VITALS: BP 124/73; PULSE 71; RESP 20; TEMP 36.7; O2SAT 100
[2022-02-26 08:48] VITALS: BMI 34.7
[2022-02-26 12:13] LABS: POC Glucose,Bedside 92 (70-110)
--- NOTE | 2022-02-26 12:33 | HMH.DCSUM ---
General - General Admission date:: 02/25/22 Discharge date: 02/26/22 HPI HPI: Mrs. Morales is a 51yF with CKD and prediabetes who presented to the outpatient office with abscess of back of neck. Started one week ago. Pain and swelling has worsened since presentation. Patient was given Bactrim by our office five days ago and has been taking twice daily since then. Abscess has continued to worsen since then. Patient went to Urgent Care three days ago and reports that draining fluid from abscess was collected and sent for culture. She has not received results from those cultures. She was also given high dose ibuprofen, which she has been taking for pain. She reports significant pain from abscess. She has been unable to sleep due to pain. Reports no fevers, chills since development of abscess. Has no other skin lesions currently. Reports two abcesses (arm and chest) in past, but is unsure what antibiotics she was given at that time. Reports no known trauma or insect bites at area of abscess prior to abscess develpment. Directly admitted to the hospital for further management. Given failure of oral antibiotics, will initiate IV antibiotics. Surgery consult placed. Hospital Course Hospital Course: 51-year-old female with multiple comorbidities who presented to the outpatient office with failure of oral therapy for carbuncle on her scalp. Given size and failure of outpatient treatment, admitted to the hospital with surgical consult placed. Initiated on IV antibiotics. Taken to the OR for debridement. Tolerated procedure well. Improved pain and neck movement. Medically stable for discharge home. Transition antibiotics. Follow-up with surgery this coming week. Discussed wound packing with patient, is going to pack daily. Problems addressed as follows during admission: Carbuncle -Failed outpatient oral therapy. Admitted for IV antibiotics, surgical consult, and debridement. See OR note for full details. Treated with IV antibiotics during duration of admission. Transitioned to oral clindamycin given failure of Bactrim. Surgery recommended packing lightly with gauze, changing daily. Wound should close via secondary intention. Culture obtained earlier this week, growing staph aureus. Sensitive to both Bactrim and clindamycin. Repeat cultures obtained in the OR, will monitor for results. Able for discharge home for continued wound care and completion of antibiotic regimen. Close follow-up in the office monitor progress. Chronic conditions: -Diabetes: Sliding scale insulin and fingerstick glucose AC at bedtime -Essential hypertension: Resume home course when appropriate -Chronic kidney disease: Caution with nephrotoxins, monitor creatinine daily. -Tobacco use disorder: initiate on nicotine patch. -Bipolar: Resume home medications - Obesity complicates all aspects of care. Discussed medications and possible side effects. Patient and comfortable with plan. Objective Vital signs: Temp Pulse Resp BP Pulse Ox 98.0 F 71 20 124/73 100 02/26/22 08:00 02/26/22 08:00 02/26/22 08:00 02/26/22 08:00 02/26/22 08:00 Narrative: - Constitutional NAD, obese, disheveled - *Routine HEENT Exam Head: Present: normocephalic, surgical site with gauze packing. minimal bloody drainage, interval improvement in pain with movement of neck. Eye: Present: EOMI, PERRL ENT: Present: mucous membranes moist - *Routine Neck Exam Present: supple. Absent: lymphadenopathy - *Routine Respiratory Exam Present: CTA bilaterally - *Routine Cardiovascular Exam Present: RRR - *Routine Abdominal Exam Present: soft, normoactive bowel sounds. Absent: tenderness - *Routine Extremities Exam Absent: cyanosis, clubbing, edema - *Routine Skin Exam Present: warm. Absent: rash - *Routine Neurological Exam Present: alert, oriented X3 Results Labs on day of discharge: Labs from last 24 hours 02/26/22
--- NOTE | 2022-02-26 13:55 | PC.NURSE ---
pt was discharged home. dressing changed before discharge. pt's spouse stated he was okay with doing daily dressing changes at home. supplies given at discharge.
[2022-02-27 04:54] VITALS: BP 142/76; PULSE 77; TEMP 36.4
--- NOTE | 2022-02-27 04:54 | P.PN_ITS ---
[facility] Anesthesia Record Part II Discharge Time: 14:50 Destination: Medical Surgical Department PACU nurse assessment reviewed?: Yes Patient Condition:: Good Anesthesia Complications:: None Swallowing reflex intact?: Yes Cyanosis?: No Blood Pressure: 142/76 Pulse Rate: 77 Temperature: 97.5 F Mental Status: Alert & Oriented Pain level:: 2 Nausea and/or vomitting:: None Intake, IV Amount: 0
--- NOTE | 2022-02-28 14:33 | CARE MANAGER ---
Contacted patient related to follow up from discharge from hospital. Patient sates she is doing better since being home. She is sleeping better as well. Denies any questions or concerns at this time. CLARA Desai
== END 2022-02-26 13:25 | disposition home or self-care (01) ==
PROVIDERS: Surgery; Admitting Provider Internal Medicine Adolescent Medicine; PCP Internal Medicine Adolescent Medicine; Visit Provider Internal Medicine Adolescent Medicine
DX: L02.13 Carbuncle of neck (principal); E11.9 Type 2 diabetes mellitus without complications; F31.9 Bipolar disorder, unspecified; N18.9 Chronic kidney disease, unspecified; F17.210 Nicotine dependence, cigarettes, uncomplicated; Z79.84 Long term (current) use of oral hypoglycemic drugs; Z20.822 Contact with and (suspected) exposure to COVID-19; I12.9 Hypertensive chronic kidney disease with stage 1 through stage 4 chronic kidney disease, or unspecified chronic kidney disease; B95.62 Methicillin resistant Staphylococcus aureus infection as the cause of diseases classified elsewhere
CPT/HCPCS: 10061; 36415; 80053; 82962; 83605; 83735; 85007; 85025; 87040; 87070; 87075; 87077; 87186; 87205; 94640; C9803; G0378; J2405; J3370; J3475; U0003; U0005

== ENCOUNTER 2022-06-08 17:59 | Emergency (ER) | payer OTHER, SELFPAY ==
[2022-06-08 18:55] VITALS: BP 108/73; PULSE 60; RESP 18; TEMP 36.7; O2SAT 97; BMI 33.9
--- NOTE | 2022-06-08 19:14 | XR_ITS ---
PROCEDURE INFORMATION: Exam: XR Right Ankle Exam date and time: 06/08/2022 7:19 PM Age: 51 years old Clinical indication: Pain; Ankle; Left; Additional info: Ankle trauma TECHNIQUE: Imaging protocol: Radiologic exam of the Right ankle. Views: 3 or more views. COMPARISON: CR XR FOOT RT MIN 3V 06/03/2021 7:01 PM FINDINGS: Bones/joints: There is no evidence of acute fracture or dislocation. Joint spaces appear preserved. Calcaneal spurs are demonstrated at the origin of the plantar fascia and the insertion of the Achilles tendon. Soft tissues: No significant soft tissue edema. No subcutaneous emphysema or radiopaque foreign bodies. IMPRESSION: No acute posttraumatic osseous injury.
--- NOTE | 2022-06-08 19:15 | XR_ITS ---
PROCEDURE INFORMATION: Exam: XR Ribs with PA Chest Exam date and time: 06/08/2022 7:12 PM Age: 51 years old Clinical indication: Injury or trauma; Fall; Rib area, bilateral; Blunt trauma TECHNIQUE: Imaging protocol: Radiologic exam of the bilateral ribs with PA chest. Views: 4 views COMPARISON: No relevant prior studies available. FINDINGS: Lungs: Lung volumes are mildly diminished. The lungs appear clear. No focal areas of consolidation. Pleural spaces: No pleural effusions or appreciable adenopathy. Negative for pneumothorax. Heart/Mediastinum: Cardiac silhouette and pulmonary vasculature are within range of normal. Bones/joints: There is no evidence of acute fracture. The thoracic spine demonstrates moderate degenerative changes at multiple levels. No definite acute rib fractures are seen. IMPRESSION: Negative for an acute posttraumatic process.
--- NOTE | 2022-06-08 19:15 | HMH.EDGENADL ---
Discharge Plan Disposition Patient Disposition: Home, Self-Care Prescriptions Prescriptions: No Action albuterol sulfate [Ventolin HFA] 90 mcg/actuation HFA aerosol inhaler 2 puff IH Q6HP PRN (Reason: Shortness Of Breath) Label Comments: INHALE 2 PUFFS BY MOUTH EVERY 6 HOURS bupropion HCl 300 mg tablet extended release 24 hr 300 mg PO DAILY Qty: 30 1RF Rx Instructions: with the 150mg tablet; total dose is 450mg daily bupropion HCl 150 mg tablet extended release 24 hr 150 mg PO DAILY Qty: 30 1RF Rx Instructions: with the 300mg tablet; dose is 450mg daily buspirone 10 mg tablet 10 mg PO BID Qty: 60 1RF fluoxetine 40 mg capsule 40 mg PO HS Qty: 30 1RF Rx Instructions: take daily with the 20mg capsules; total dose is 60mg daily fluoxetine [Prozac] 20 mg capsule 20 mg PO DAILY Qty: 30 1RF Rx Instructions: take daily with the 40mg capsules; total dose is 60mg daily lurasidone 120 mg tablet 120 mg PO HS Qty: 30 1RF trazodone 50 mg tablet 50 mg PO HS PRN (Reason: sleep) Qty: 30 1RF hydrochlorothiazide 12.5 mg capsule 12.5 mg PO DAILY Label Comments: pt no longer taking fluticasone propionate [Flonase Allergy Relief] 50 mcg/actuation spray,suspension 1 spray NS DAILY Rx Instructions: administer into each nostril diclofenac sodium 1 % gel 2 g TP QID Rx Instructions: apply to single elbow, wrist or hand; for hand includes palm/fingers/back of hand pantoprazole 40 mg tablet,delayed release (DR/EC) 40 mg PO HS atorvastatin 40 mg tablet 40 mg PO HS lisinopril 20 mg tablet 20 mg PO DAILY cetirizine [All Day Allergy (cetirizine)] 10 mg tablet 10 mg PO DAILY mupirocin 2 % ointment 1 applic TP TID Qty: 15 0RF hydroxyzine pamoate [Vistaril] 25 mg capsule 25 mg PO TID PRN (Reason: for increased anxiety) Qty: 90 0RF clonazepam [Klonopin] 0.5 mg tablet 0.5 mg PO BID PRN (Reason: anxiety) Qty: 30 0RF fluticasone propion-salmeterol 28 PUFF blister with device 1 inh IH BID celecoxib 100 MG capsule 100 mg PO BID Referrals Follow up/Referrals: Ben Marie MD [Primary Care Provider] - See instructions Activity Restrictions/Add. Instructions Additional Instructions/Restrictions: Follow-up with your primary care physician within the next few days for reassessment of ankle pain. Continue to take Tylenol for chest wall pain. Return for any other concerns within the next 8 hours Clinical Impressions Clinical Impression: Acute chest wall pain, Ankle sprain Discharge ED Provider: Selvin Hatch General Adult HPI General Chief complaint: PAIN Stated complaint: AO 0915 FELL foot and ankle pain Time Seen by Provider: 06/08/22 18:00 Mode of Arrival: Ambulatory Source of Information: Patient Limitations: No Limitations Description of Symptoms (Recalled from ER Triage Doc. by RN): c/o pain in her right toes and right ribs, states she was started on klonopin a few weeks ago and didnt know it would make you drowsy and fell hitting the tub causing her injuries. Pt states that she was seen by her pcp and told of this dx. Pt is having a heard time sleeping on her right side and is more difficult to walk with her cane due to the pain. History of Present Illness HPI narrative: 51-year-old female with fall. She says she was taking Klonopin a few weeks ago got drowsy tripped and hit the top. She says she went to primary care for physician however did not get x-rays. She is having right-sided chest wall pain and right ankle pain. She is ambulatory to the room and able to bear weight. She has dull pain no radiation of the pain. Related Data Home Medications Medication Instructions Recorded Confirmed atorvastatin 40 mg tablet 40 mg PO HS Cholesterol 12/06/19 03/16/22 cetirizine 10 mg tablet (All Day 10 mg PO DAILY Allergy symptoms 12/06/19 03/16/22 Allergy (cetirizine))
[2022-06-08 20:02] VITALS: BP 115/74; PULSE 64; RESP 18; TEMP 36.7; O2SAT 97
== END 2022-06-08 20:04 | disposition home or self-care (01) ==
PROVIDERS: Emergency Provider Emergency Medicine; PCP Internal Medicine Adolescent Medicine
DX: R07.89 Other chest pain (principal); S93.401A Sprain of unspecified ligament of right ankle, initial encounter; W01.198A Fall on same level from slipping, tripping and stumbling with subsequent striking against other object, initial encounter; Y92.012 Bathroom of single-family (private) house as the place of occurrence of the external cause
CPT/HCPCS: 71111; 73610; 99283

== ENCOUNTER 2022-06-16 17:27 | Emergency (ER) | payer OTHER, SELFPAY ==
[2022-06-16 17:29] VITALS: BP 118/77; PULSE 78; RESP 16; TEMP 36.6; O2SAT 100; BMI 33.9
--- NOTE | 2022-06-16 17:51 | XR_ITS ---
PROCEDURE INFORMATION: Exam: XR Left Toe(s) Exam date and time: 06/16/2022 6:08 PM Age: 51 years old Clinical indication: Injury or trauma; Fall; Blunt trauma; Toes; Left; Additional info: Left great toe pain after fall TECHNIQUE: Imaging protocol: Radiologic exam of the Left toes. Views: Minimum 2 views. COMPARISON: CR XR KNEE LT 4V 12/06/2019 8:40 AM FINDINGS: Bones/joints: Cortical disruption at the base of proximal phalanx of the 1st ray. Mild degenerative changes. Soft tissues: Normal. Other findings: Limited views. No lateral image. IMPRESSION: 1. Fracture at the base of proximal phalanx of the 1st digit. 2. Limited views. No lateral image.
--- NOTE | 2022-06-16 17:52 | PC.NURSE ---
took pt to room let them know that it would it would be a little bit because we was working an emergency, hooked pt up to moniter vitals, and see if they needed anything
--- NOTE | 2022-06-16 18:24 | HMH.EDGENADL ---
Discharge Plan Disposition Patient Disposition: Home, Self-Care Condition: Good Chief Complaint: Extremity Injury, Lower Prescriptions Prescriptions: No Action albuterol sulfate [Ventolin HFA] 90 mcg/actuation HFA aerosol inhaler 2 puff IH Q6HP PRN (Reason: Shortness Of Breath) Label Comments: INHALE 2 PUFFS BY MOUTH EVERY 6 HOURS buspirone 10 mg tablet 10 mg PO BID Qty: 60 1RF fluoxetine 40 mg capsule 40 mg PO HS Qty: 30 1RF Rx Instructions: take daily with the 20mg capsules; total dose is 60mg daily fluoxetine [Prozac] 20 mg capsule 20 mg PO DAILY Qty: 30 1RF Rx Instructions: take daily with the 40mg capsules; total dose is 60mg daily lurasidone 120 mg tablet 120 mg PO HS Qty: 30 1RF trazodone 50 mg tablet 50 mg PO HS PRN (Reason: sleep) Qty: 30 1RF hydrochlorothiazide 12.5 mg capsule 12.5 mg PO DAILY Label Comments: pt no longer taking fluticasone propionate [Flonase Allergy Relief] 50 mcg/actuation spray,suspension 1 spray NS DAILY Rx Instructions: administer into each nostril diclofenac sodium 1 % gel 2 g TP QID Rx Instructions: apply to single elbow, wrist or hand; for hand includes palm/fingers/back of hand pantoprazole 40 mg tablet,delayed release (DR/EC) 40 mg PO HS atorvastatin 40 mg tablet 40 mg PO HS lisinopril 20 mg tablet 20 mg PO DAILY cetirizine [All Day Allergy (cetirizine)] 10 mg tablet 10 mg PO DAILY mupirocin 2 % ointment 1 applic TP TID Qty: 15 0RF hydroxyzine pamoate [Vistaril] 25 mg capsule 25 mg PO TID PRN (Reason: for increased anxiety) Qty: 90 0RF clonazepam [Klonopin] 0.5 mg tablet 0.5 mg PO BID PRN (Reason: anxiety) Qty: 30 0RF bupropion HCl 300 mg tablet extended release 24 hr 300 mg PO DAILY Qty: 30 1RF Rx Instructions: with the 150mg tablet; total dose is 450mg daily bupropion HCl 150 mg tablet extended release 24 hr 150 mg PO DAILY Qty: 30 1RF Rx Instructions: with the 300mg tablet; dose is 450mg daily fluticasone propion-salmeterol 28 PUFF blister with device 1 inh IH BID celecoxib 100 MG capsule 100 mg PO BID Referrals Follow up/Referrals: Ben Marie MD [Primary Care Provider] - See instructions Garry Zhong JR, MD [Physician] - See instructions Clinical Impressions Clinical Impression: Fx phalanx, foot-closed Instructions Patient Instructions: DI for Toe Fracture Discharge ED Provider: Nicholas Nevarez General Adult HPI General Chief complaint: Extremity Injury, Lower Stated complaint: AO 06/11 FELL IN BATHTUB HURT FEET AND RIBS Time Seen by Provider: 06/16/22 18:24 Mode of Arrival: Ambulatory Limitations: No Limitations Description of Symptoms (Recalled from ER Triage Doc. by RN): pt advises she fell last monday and is still having pain in her great left toe History of Present Illness HPI narrative: 51-year-old female, reports she fell last Monday, came to the emergency department had x-rays and was diagnosed with 3 broken ribs and broken bones in her foot and has a boot on the right lower extremity. She presents today however with complaint of pain in the left great toe, states been hurting ever since the accident, and she is having more more trouble bearing weight on it. She denies any new injuries, denies any numbness or tingling, and has been taking 500 mg Tylenol twice daily without significant improvement Related Data Home Medications Medication Instructions Recorded Confirmed atorvastatin 40 mg tablet 40 mg PO HS Cholesterol 12/06/19 03/16/22 cetirizine 10 mg tablet (All Day 10 mg PO DAILY Allergy symptoms 12/06/19 03/16/22 Allergy (cetirizine)) diclofenac sodium 1 % topical gel 2 g topical QID Infection 12/06/19 03/16/22 fluticasone propionate 50 1 spray intranasal DAILY Allergy 12/06/19 03/16/22 mcg/actuation nasal symptoms spray,suspension (Flonase Allergy R
[2022-06-16 18:30] VITALS: BP 104/74; PULSE 69; O2SAT 97
[2022-06-16 20:03] VITALS: BP 110/76; PULSE 70; RESP 16; TEMP 36.6; O2SAT 98
== END 2022-06-16 20:19 | disposition home or self-care (01) ==
PROVIDERS: Emergency Provider Emergency Medicine; PCP Internal Medicine Adolescent Medicine
DX: S92.415A Nondisplaced fracture of proximal phalanx of left great toe, initial encounter for closed fracture (principal); W19.XXXA Unspecified fall, initial encounter; Y92.002 Bathroom of unspecified non-institutional (private) residence as the place of occurrence of the external cause; F31.9 Bipolar disorder, unspecified; I10 Essential (primary) hypertension; E11.9 Type 2 diabetes mellitus without complications
CPT/HCPCS: 73660; 99283